=== PATIENT | female | born 1965 | race Hispanic/Latino ===

== ENCOUNTER 2019-04-08 15:23 | Emergency (ER) | payer OTHER ==
--- OUTSIDE RECORDS SUMMARY | 2019-04-08 15:24 | XMS REPORT ---
:1965 [facility] Address [address] [place] [address] Care Team Providers Name Role Phone Unavailable Unavailable Unavailable Payers Payer Name Policy Type Policy Number Effective Date Expiration Date Problems This patient has no known problems. Allergies, Adverse Reactions, Alerts Allergy Allergy Status Severity Reaction(s) Onset Inactive Treating Comments Name Type Date Date Clinician No Known DA Active U 2018-11 Drug -23 Allergies 00:00:0 0 No Known DA Active U 2018-02 Drug -13 Allergies 00:00:0 0 Medications This patient has no known medications. Results Test Description Test Time Test Comments Text Results Atomic Results Result Comments - XR FLUORO FOR SPINE INJ 2018-11-27 16:42:00 Patient Name: FANNIE HIGGINS Unit No: [id number] EXAMS: CPT CODE: [id number] XR FLUORO FOR SPINE INJ 91398 LUMBAR FACET AND EPIRADICULAR INJECTIONS REFERRAL PHYSICIAN: None PREOPERATIVE DIAGNOSIS: Lumbar Radiculitis POSTOPERATIVE DIAGNOSIS: Degenerative right L4-5 facet with right L4-5 lateral recess stenosis and primary right L5 radicular pain PROCEDURES PERFORMED: 1. Fluoroscopically guided needle localization of the right L4 and right L5 spinal nerves with transforaminal epidurograms and epidural injection of local anesthetic and steroid. 2. Fluoroscopically guided needle localization of the right L4-5 facet with arthrogram and diagnostic injection of local anesthetic and steroid. FINDINGS: Fairly good flow seen through the foramen bilaterally with minimal anterior epidural displacement across the L4-5 discs. Moderate anterior epidural displacement seen across the L3-4 disc. The right L4-5 facet showed moderate capsular degeneration and joint hypertrophy. Aspiration was negative and provocation was negative. Anesthetic response was positive with the patient noting complete relief of her low back and right lower extremity pain. Preinjection VAS 5/10. Postinjection VAS 0/10. Steroid response pending follow-up. ESTIMATED BLOOD LOSS: Minimal ANESTHESIA: TIVA COMPLICATIONS: None DETAILS OF PROCEDURE: After obtaining stable vital signs, informed consent and IV access, with no contraindications, the patient was taken to the operating room and placed in a prone position with all extremities padded and appropriate monitors placed. The patient was sterilely prepped and draped over the lumbosacral spine. Using fluoroscopic visualization the insertion sites were marked for a paravertebral approaches and using standard technique, a 25 gauge needle was advanced into the facet joint and a 25 gauge 6 inch needle was advanced to the base of each pedicle without paresthesias. Aspiration was negative. Isovue-300 contrast 0.2 mL was injected incrementally with frequent negative aspirations to produce the arthrogram and epidurograms. There were no signs of intravascular or intrathecal uptake. Bupivicaine 0.75% 0.25 mL with lidocaine 4% 0.5 mL and triamcinolone 12 mg was injected at the facet, while bupivicaine 0.75% 0.25 ml with Lidocaine 4% 0.5 ml and Decadron 8 mg was then incrementally injected with frequent negative aspirations at each pedicle. Again, there were no signs of intravascular or intrathecal uptake. The patient's vital signs remained stable. The needles were removed and the patient was taken to the PACU in good condition. [facility] NAME: FANNIE HIGGINS [address] [facility] PHYS: Tiago Meza MD [place], [place] [address] : 1965 AGE: 53 SEX: F LOC: [place] PHONE #: [phone] EXAM DATE: 11/27/2018 [place] [facility] #: [phone] RAD #: [id number] D/C DT PAGE 1 Signed Report (CONTINUED) Patient Name: FANNIE HIGGINS Unit No: [id number] EXAMS: CPT CODE: [id number] XR FLUORO FOR SPINE INJ 86141 <Continued> at 1642 Reported and signed by: Tiago Neal M.D. CC: Technologist: Nnacy Wilkins(R) Transcribed D/ (7100) [place] [facility] NAME: FANNIE HIGGINS [address] [facility] PHYS: Tiago Meza MD [place], [place] [address] : 1965 AGE: 53 SEX: F LOC: [place] PHONE #: [phone] EXAM DATE: 11/27/2018 [place]: [facility] [place] #: [phone] RAD #: [id number] D/C DT PAGE 2 Signed Report Patient Name: FANNIE HIGGINS Unit No: [id number] EXAMS: CPT CODE: [id number] XR FLUORO FOR SPINE INJ 84220 <Continued> Orig Print D/T: S: 11/27/2018 (7891) [facility] NAME: FANNIE HIGGINS [address] [facility] PHYS: Tiago Meza MD [place], [place] [address] : 1965 AGE: 53 SEX: F LOC: [place] PHONE #: [phone] EXAM DATE: 11/27/2018 [place]US: [facility] [place] #: [phone] RAD #: [id number] D/C DT PAGE 3 Signed Report NM BONE SPECT SCAN CLINICAL INDICATION: dx: m47.817, lumbar spine abnormality, (L4/L5), chronic lower back pain, no roken bones or trauma beforeMODALITY: [employer] dual head gamma cameraTECHNIQUE: 25 mCi Tc 99m MDP are injected IV. After a suitable time delay, whole body imaging images were obtained. SPECT imaging of the lumbar spine is performed with computer and physician-assisted 2-D and 3-D reconstruction.FINDINGS:COMPARISON: Lumbar spine performed 01/17/2018.Mild to moderate L2-3 disc space narrowing is associated with marginal osteophyte formation. Minimal approximate 2.0 mm spondylolisthesis of L4 is noted in the neutral position. There is no evidence of significant dynamic instability. Lumbosacral facet arthrosis is seen.Symmetric bilateral renal function is observed.Uptake is noted within the ethmoid sinuses. Mild periodontal disease is seen.Mild to moderate arthritic changes are seen at the left acromioclavicular, bilateral glenohumeral joints. Mild sternoclavicular joint and hip uptake is noted bilaterally. Moderate - severe localization is seen at the medial compartment left knee. Mild bilateral midfoot arthritis is present.SPECT imaging of the lumbar spine demonstrates only mild uptake to be present at the L2-3 intervertebral disc. There is no facet localization demonstrated. Symmetric increased uptake is noted at the SI joints, characterized as moderate.IMPRESSION:See comments above.PQRS 147: 3570F CR - XRAY SPINE, CLINICAL INDICATION: M47.817 LUMBOSACRAL: COMPLETE Spondyls w/o myelopathy or W/BENDING, MIN 6 VIEWS radiculopathy, lumbosacr regionFINDINGS:COMPARISON: None.Seven views of lumbar spine were obtained.Five [id number] lumbar-type vertebral bodies are evident. Lumbar spine alignment is normal. Mild to moderate lumbar dextroscoliosis is present. Mild to moderate multilevel anterior spondylosis is present. Mild to moderate multilevel bilateral lumbar facet arthropathy is seen. No dynamic instability is appreciable on flexion/extension views. Incidental note is made of prior lap band placement.IMPRESSION:1. Multilevel lumbar spondylosis and facet arthrosis.2. Mild to moderate mid lumbar dextroscoliosis.3. No dynamic instability on flexion/extension views.4. Status post lap band placement.
[2019-04-08 16:15] LABS: Urine Appearance CLOUDY; Urine Bilirubin NEGATIVE (NEG); Urine Blood 3+ (NEG); Urine Color YELLOW; Urine Glucose NEGATIVE (NEG); Urine Protein 3+ (NEG); Urine Specific Gravity 1.025 (1.005-1.030); Urine Urobilinogen 0.2 mg/dL (0.2-1.0); Urine pH 6.5 (5.0-7.0)
[2019-04-08 16:17] LABS: Absolute Lymphocytes (CBC) 1.7 K/uL (0.7-4.9); Absolute Monocytes 0.4 K/uL (0.1-1.3); Basophils % 0.2 % (0-1.3); Eosinophils % 0.6 % (0-4.4); Hematocrit 34.7 % (36.0-45.0); Lymphocytes % 20.6 % (15.3-44.8); MPV 10.3 fL (7.6-11.3); RBC Red Blood Cell Count 3.69 M/uL (3.86-4.86)
[2019-04-08] MEDS ORDERED: NA CHLORIDE 0.9% 1,000 ML ONE (16:27)
[2019-04-08 16:29] LABS: Urine Bacteria 20-50 /HPF (<20); Urine Culture Reflex Order REFLEXED; Urine RBC LOADED /HPF (NONE SEEN)
[2019-04-08 16:40] LABS: Albumin 3.8 g/dL (3.4-5.0); Bilirubin Direct 0.2 mg/dL (0-0.2); Bilirubin Total 0.6 mg/dL (0.2-1.0); Potassium 3.6 mmol/L (3.5-5.1)
--- NOTE | 2019-04-08 17:17 | RAD REPORT ---
EXAM DESCRIPTION: CT - Abdomen Pelvis W Contrast - 04/08/2019 5:02 pm CLINICAL HISTORY: Abdominal pain hematuria COMPARISON: none. TECHNIQUE: Computed axial tomography of the abdomen pelvis was obtained. 100 cc Isovue-300 was admin istered intravenously. Oral contrast was not requested which limits evaluation of bowel. All CT scans are performed using dose optimization technique as appropriate and may include automated exposure control or mA/KV adjustment according to patient size. FINDINGS: The liver, spleen, pancreas, adrenal and kidneys appear unremarkable. There is no evidence of diverticulitis. Cholecystectomy. Postsurgical changes involve the stomach IMPRESSION: No acute abnormality is displayed.
--- NOTE | 2019-04-08 17:34 | ER ---
Nurse's Notes [facility] Name: Holly Ba Age: 53 yrs Sex: Female : 1965 Arrival Date: 04/08/2019 Time: 15:28 Bed 26 Private MD: Jean Bonilla B Diagnosis: Urinary tract infection, site not specified Presentation: 04/08 15:35 Presenting complaint: Patient states: i woke up this AM and noticed my urine is bloody, hj i have pain on my bladder area and R flank area; denies N/V; denies fever and chills;. Transition of care: patient was not received from another setting of care. Onset of symptoms was April 08, 2019. Risk Assessment: Do you want to hurt yourself or someone else? Patient reports no desire to harm self or others. Initial Sepsis Screen: Does the patient meet any 2 criteria? No. Patient's initial sepsis screen is negative. Does the patient have a suspected source of infection? No. Patient's initial sepsis screen is negative. Care prior to arrival: None. 15:35 Method Of Arrival: Ambulatory 15:35 Acuity: STEPHANIE 3 hj Triage Assessment: 15:54 General: Appears uncomfortable, Behavior is calm, cooperative. Pain: Complains of pain ls4 in suprapubic area Pain currently is 7 out of 10 on a pain scale. Neuro: No deficits noted. Cardiovascular: No deficits noted. Respiratory: No deficits noted. : Reports BLOOD IN URINE. 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 - Social history:: Smoking status: Patient/guardian denies using tobacco. - Ebola Screening: : Patient negative for fever greater than or equal to 101.5 degrees Fahrenheit, and additional compatible Ebola Virus Disease symptoms Patient denies exposure to infectious person Patient denies travel to an Ebola-affected area in the 21 days before illness onset No symptoms or risks identified at this time. Screenin:54 Abuse screen: Denies threats or abuse. Denies injuries from another. Nutritional ls4 screening: No deficits noted. Tuberculosis screening: No symptoms or risk factors identified. Fall Risk None identified. Assessment: 17:00 General: Appears uncomfortable, Behavior is calm, cooperative. Neuro: No deficits ls4 noted. Cardiovascular: No deficits noted. Respiratory: No deficits noted. : Reports burning with urination, pain in suprapubic area. Vital Signs: 15:38 BP 130 / 76; Pulse 68; Resp 18; Temp 98.1(O); Pulse Ox 100% on R/A; Weight 91.17 kg; hj Height 5 ft. 2 in. (157.48 cm); Pain 7/10; 17:00 BP 134 / 72; Pulse 64; Resp 16; Pulse Ox 98% on R/A; Pain 5/10; ls4 18:00 BP 128 / 74; Pulse 64; Resp 16; Pulse Ox 99% on R/A; Pain 3/10; ls4 18:45 BP 128 / 63; Pulse 74; Resp 14; Pulse Ox 99% on R/A; Pain 3/10; ls4 15:38 Body Mass Index 36.76 (91.17 kg, 157.48 cm) ED Course: 15:28 Patient arrived in ED. mr 15:28 Jean Bonilla MD is Private Physician. mr 15:37 Triage completed. hj 15:39 Arm band placed on right wrist. hj 15:49 Juan Jose Hernandez NP is PHCP. pm1 15:49 Sukh Quigley MD is Attending Physician. pm1 15:53 Camryn Nassar, PATRICIA is Primary Nurse. ls4 15:54 Patient has correct armband on for positive identification. Bed in low position. Call ls4 light in reach. Side rails up X 1. 15:54 No provider procedures requiring assistance completed. ls4 16:00 Urine collected: clean catch specimen, jordon blood. 3 16:07 Radiology exam delayed due to lab results not completed at this time. (BUN/Creatinine) sj IV insertion attempt and/or patient not having appropriate IV at this time. 16:08 Initial lab(s) drawn, by me, sent to lab. Inserted saline lock: 20 gauge in left 3 antecubital area, using aseptic technique. Blood collected. 17:03 CT Abd/Pelvis - IV Contrast Only In Process Unspecified. EDMS 17:04 CT completed. Patient tolerated procedure well. Patient moved to CT. Patient moved back mn from CT. 17:06 Urine Culture Sent. ls4 18:20 Urinary Bladder In Process Unspecified. EDMS 19:10 IV discontinued, intact, bleeding controlled, No redness/swelling at site. Pressure ls4 dressing applied. Administered Medications: 16:15 Drug: NS 0.9% 1000 ml Route: IV; Rate: 1000 ml; Site: left antecubital; ls4 17:20 Follow up: IV Status: Completed infusion; IV Intake: 1000ml ls4 17:54 Drug: Rocephin 1 grams Route: IV; Rate: calculated rate; Site: right antecubital; ls4 18:04 Follow up: IV Status: Completed infusion; IV Intake: 10ml ls4 18:22 Follow up: Response: No adverse reaction ls4 17:54 Drug: morphine 4 mg Route: IVP; Site: right antecubital; ls4 18:22 Follow up: Response: No adverse reaction; Marked relief of symptoms ls4 17:55 Drug: Zofran 4 mg Route: IVP; Site: right antecubital; ls4 18:21 Follow up: Response: No adverse reaction; Marked relief of symptoms ls4 Intake: 17:20 IV: 1000ml; Total: 1000ml. ls4 18:04 IV: 10ml; Total: 1010ml. ls4 Outcome: 17:34 Discharge ordered by MD. pm1 19:10 Discharged to home ls4 19:10 Condition: good 19:10 Discharge instructions given to patient, family, Instructed on discharge instructions, follow up and referral plans. medication usage, safety practices, Demonstrated understanding of instructions, follow-up care, medications, Prescriptions given X 2. 19:11 Patient left the ED. ls4 Signatures: Dispatcher [employer] EDMS Torsten Radha JuniorAjit Jackson, PATRICIA RN Juan Jose Wang NP HEAD COOK pm1 Ash Cherry Deanna 3 Camryn Nassar RN RN ls4 Corrections: (The following items were deleted from the chart) 15:40 15:38 Pulse 68bpm; Resp 18bpm; Pulse Ox 100% RA; Temp 98.1F Oral; 91.17 kg; Height 5 hj ft. 2 in.; BMI: 36.7; Pain 7/10; hj
--- NOTE | 2019-04-08 17:35 | EDPHYS ---
Physician Documentation [facility] Name: Holly Ba Age: 53 yrs Sex: Female : 1965 Arrival Date: 04/08/2019 Time: 15:28 Bed 26 Private MD: Jean Bonilla B ED Physician Sukh Quigley HPI: 04/08 16:05 This 53 yrs old Female presents to ER via Ambulatory with complaints of pm1 Urinary Problem. 16:05 The patient presents with flank pain, on the right, urinary symptoms, hematuria. Onset: pm1 The symptoms/episode began/occurred this morning. Modifying factors: The symptoms are alleviated by nothing, the symptoms are aggravated by urinating. Associated signs and symptoms: Pertinent positives: 1 episode of diarrhea, suprapubic pressure, Pertinent negatives: fever, nausea, vaginal bleeding, vaginal discharge, vomiting. Severity of symptoms: in the emergency department the symptoms are unchanged. The patient has not experienced similar symptoms in the past. The patient has been recently seen by a physician: the patient's primary care provider, Dr. Bonilla, prior to arrival and was prescribed bactrim. 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 - Social history:: Smoking status: Patient/guardian denies using tobacco. - Ebola Screening: : Patient negative for fever greater than or equal to 101.5 degrees Fahrenheit, and additional compatible Ebola Virus Disease symptoms Patient denies exposure to infectious person Patient denies travel to an Ebola-affected area in the 21 days before illness onset No symptoms or risks identified at this time. ROS: 16:05 Positive for flank pain, hematuria. pm1 16:05 Constitutional: Negative for fever, chills, and weight loss, Eyes: Negative for injury, pain, redness, and discharge, ENT: Negative for injury, pain, and discharge, Neck: Negative for injury, pain, and swelling, Cardiovascular: Negative for chest pain, palpitations, and edema, Respiratory: Negative for shortness of breath, cough, wheezing, and pleuritic chest pain. 16:05 Back: Negative for injury and pain, MS/Extremity: Negative for injury and deformity, Skin: Negative for injury, rash, and discoloration. 16:05 Neuro: Negative for headache, weakness, numbness, tingling, and seizure. 16:05 Abdomen/GI: Positive for abdominal pain, diarrhea, of the suprapubic area, Negative for nausea and vomiting. Exam: 16:05 Constitutional: This is a well developed, well nourished patient who is awake, alert, pm1 and in no acute distress. Head/Face: Normocephalic, atraumatic. Eyes: Pupils equal round and reactive to light, extra-ocular motions intact. Lids and lashes normal. Conjunctiva and sclera are non-icteric and not injected. Cornea within normal limits. Periorbital areas with no swelling, redness, or edema. ENT: Nares patent. No nasal discharge, no septal abnormalities noted. Tympanic membranes are normal and external auditory canals are clear. Oropharynx with no redness, swelling, or masses, exudates, or evidence of obstruction, uvula midline. Mucous membranes moist. Neck: Trachea midline, no thyromegaly or masses palpated, and no cervical lymphadenopathy. Supple, full range of motion without nuchal rigidity, or vertebral point tenderness. No Meningismus. Chest/axilla: Normal chest wall appearance and motion. Nontender with no deformity. No lesions are appreciated. Cardiovascular: Regular rate and rhythm with a normal S1 and S2. No gallops, murmurs, or rubs. Normal PMI, no JVD. No pulse deficits. Respiratory: Lungs have equal breath sounds bilaterally, clear to auscultation and percussion. No rales, rhonchi or wheezes noted. No increased work of breathing, no retractions or nasal flaring. 16:05 Skin: Warm, dry with normal turgor. Normal color with no rashes, no lesions, and no evidence of cellulitis. MS/ Extremity: Pulses equal, no cyanosis. Neurovascular intact. Full, normal range of motion. 16:05 Abdomen/GI: Inspection: abdomen appears normal, Bowel sounds: normal, Palpation: soft, mild abdominal tenderness, in the suprapubic area, mass, is not appreciated, rebound tenderness, is not appreciated. 16:05 Back: pain, that is mild, of the right mid back, normal spinal alignment noted, vertebral tenderness, is not appreciated. 16:05 Neuro: Orientation: is normal, Motor: is normal, moves all fours, Sensation: is normal, no obvious gross deficits, Gait: is steady, at a normal pace, without difficulty. Vital Signs: 15:38 BP 130 / 76; Pulse 68; Resp 18; Temp 98.1(O); Pulse Ox 100% on R/A; Weight 91.17 kg; hj Height 5 ft. 2 in. (157.48 cm); Pain 7/10; 17:00 BP 134 / 72; Pulse 64; Resp 16; Pulse Ox 98% on R/A; Pain 5/10; ls4 18:00 BP 128 / 74; Pulse 64; Resp 16; Pulse Ox 99% on R/A; Pain 3/10; ls4 18:45 BP 128 / 63; Pulse 74; Resp 14; Pulse Ox 99% on R/A; Pain 3/10; ls4 15:38 Body Mass Index 36.76 (91.17 kg, 157.48 cm) hj MDM: 15:49 Patient medically screened. pm1 17:20 Data reviewed: vital signs. Data interpreted: Pulse oximetry: on room air is 100 %. pm1 Interpretation: normal. Counseling: I had a detailed discussion with the patient and/or guardian regarding: the historical points, exam findings, and any diagnostic results supporting the discharge/admit diagnosis, lab results, the need for outpatient follow up, to return to the emergency department if symptoms worsen or persist or if there are any questions or concerns that arise at home. 17:50 Physician consultation: Jean Bonilla MD was contacted at 17:50, Dr. Bonilla requested pm1 update on the patient. Reviewed CT and labs. Would like U/S of the bladder in the ER to R/O mass. 04/08 15:54 Order name: Basic Metabolic Panel; Complete Time: 17:06 pm1 04/08 15:54 Order name: CBC with Diff; Complete Time: 17:06 pm1 04/08 15:54 Order name: Creatinine for Radiology; Complete Time: 17: pm1 04/08 15:54 Order name: Hepatic Function; Complete Time: 17:06 pm1 06/05 15:54 Order name: Lipase; Complete Time: 17:06 pm1 04/08 15:54 Order name: CT Abd/Pelvis - IV Contrast Only; Complete Time: 17:20 pm1 04/08 16:14 Order name: Urinalysis W/Microscopic; Complete Time: 17:06 EDKS 04/08 16:34 Order name: Urine Culture [facility] 04/08 17:52 Order name: Urinary Bladder; Complete Time: 18:45 EDKS 04/08 15:39 Order name: Urine Dipstick-Ancillary (obtain specimen); Complete Time: 17:06 kb 04/08 15:54 Order name: IV Saline Lock; Complete Time: 16:15 pm1 04/08 15:54 Order name: Labs collected and sent; Complete Time: 16:15 pm1 Administered Medications: 16:15 Drug: NS 0.9% 1000 ml Route: IV; Rate: 1000 ml; Site: left antecubital; ls4 17:20 Follow up: IV Status: Completed infusion; IV Intake: 1000ml ls4 17:54 Drug: Rocephin 1 grams Route: IV; Rate: calculated rate; Site: right antecubital; ls4 18:04 Follow up: IV Status: Completed infusion; IV Intake: 10ml ls4 18:22 Follow up: Response: No adverse reaction ls4 17:54 Drug: morphine 4 mg Route: IVP; Site: right antecubital; ls4 18:22 Follow up: Response: No adverse reaction; Marked relief of symptoms ls4 17:55 Drug: Zofran 4 mg Route: IVP; Site: right antecubital; ls4 18:21 Follow up: Response: No adverse reaction; Marked relief of symptoms ls4 Disposition: 04/08/19 17:34 Discharged to Home. Impression: Urinary tract infection, site not specified. - Condition is Stable. - Discharge Instructions: Urinary Tract Infection, Adult. - Prescriptions for Pyridium 200 mg Oral Tablet - take 1 tablet by ORAL route every 8 hours for 3 days; 9 tablet. Tylenol- Codeine #3 300-30 mg Oral Tablet - take 2 tablets by ORAL route every 6 hours As needed; 20 tablet. - Medication Reconciliation Form, Thank You Letter, Antibiotic Education, Prescription Opioid Use form. - Follow up: Emergency Department; When: As needed; Reason: Worsening of condition. Follow up: Private Physician; When: 2 - 3 days; Reason: Recheck today's complaints, Continuance of care, Re-evaluation by your physician. - Problem is new. - Symptoms have improved. Signatures: Dispatcher [employer] EDKS Joellen Rea, PICKLING OPERATOR-C PICKLING OPERATOR-Ajit Ribeiro, RN RN hj Juan Jose Hernandez, CAR FILLER CAR FILLER pm1 Camryn Nassar, RN RN ls4 Corrections: (The following items were deleted from the chart) 16:13 15:54 Urinalysis ordered. [facility] EDKS 16:14 15:41 UA MICROSCOPIC+U.LAB.BRZ ordered. [facility] 19:11 17:34 04/08/2019 17:34 Discharged to Home. Impression: Urinary tract infection, site ls4 not specified. Condition is Stable. Forms are Medication Reconciliation Form, Thank You Letter, Antibiotic Education, Prescription Opioid Use. Follow up: Emergency Department; When: As needed; Reason: Worsening of condition. Follow up: Private Physician; When: 2 - 3 days; Reason: Recheck today's complaints, Continuance of care, Re-evaluation by your physician. Problem is new. Symptoms have improved. pm1
[2019-04-08] MEDS ORDERED: CEFTRIAXONE/SWI 1gm 1 GM/10 ML SYR ONE (18:04)
[2019-04-08] MEDS ORDERED: ONDANSETRON 4 MG/2 ML VIAL ONE (18:04)
[2019-04-08] MEDS ORDERED: MORPHINE 4 MG/ML SYR ONE (18:04)
--- NOTE | 2019-04-08 18:41 | RAD REPORT ---
EXAM DESCRIPTION: US - Urinary Bladder - 04/08/2019 6:19 pm CLINICAL HISTORY: Hematuria FINDINGS: The bladder is not well distended which limits evaluation. No gross abnormality of bladder noted. No ascites IMPRESSION: No gross abnormality of the bladder
== END 2019-04-08 19:11 | disposition home or self-care (01) ==
LOC: ER 15:23
DX: N39.0 Urinary tract infection, site not specified (principal)
CPT/HCPCS: 36415; 74177; 76857; 80048; 80076; 81001; 83690; 85025; 87086; 87088; 96361; 96374; 96375; 99284; J0696; J2405; J7030; Q9967